=== PATIENT | male | born 1955 | race Caucasian/White ===

== ENCOUNTER 2016-12-10 10:48 | Emergency (ER) | payer SELFPAY ==
[~2016-12-10] VITALS: Ht 165.1 cm; Wt 80.7 kg
[~2016-12-10 10:48] MED LIST: NO ROUTINE MEDS
[2016-12-10 10:56] VITALS: Ht 165.1 cm; Wt 80.7 kg
[2016-12-10] MEDS ORDERED: METR-116 PO (11:22)
--- NOTE | 2016-12-10 11:40 | NUR ---
PROVIDER DR. KENYON AT BEDSIDE FOR EXAM.
[2016-12-10] MEDS ORDERED: MethylPREDNISolone ACETATE 80mg/1ml IM ONE (12:00)
--- NOTE | 2016-12-10 12:10 | ERPDOC ---
Departure Disposition Decision Date: Dec 10, 2016 Disposition Decision Time: 12:52 Disposition: 01 DISCHARGED HOME, SELF-CARE Impression Impression Impression: Primary Impression: Prostatitis Additional Impression: Low back strain Severity: Moderate Condition: Improved Seen By: Physician only Patient Instructions: Acute Low Back Pain (ED) Problems/Meds/Labs Reviewed?: Yes Medications reviewed and manag: Yes Additional Instructions: Bactrim DS, one pill twice daily for prostatitis. Prednisone burst and taper 10 mg tablets. 3 tabs daily for 3 days, 2 tabs daily for 3 days, 1 tablet daily for 3 days. follow up with your primary care provider. Follow up care ordered?: Yes Mental Status: Alert, Oriented HPI - Back Pain General Chief Complaint: Back Pain or Injury Stated Complaint: BACK PAIN Time Seen by Provider: 11:47 HPI - Back Pain Initial Comments 61-year-old gentleman presents with low back pain. 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 He was lifting and twisting felt sudden pain in his low back 2 days ago. Pain is localized to the mid low back, does not radiate to the legs. No loss of bowel or bladder function. He does have a history of difficulty urinating which is gotten worse as his gotten older. He has been diagnosed with prostatitis before. No fevers no chills. No numbness or tingling in the legs Allergies: Coded Allergies: No Known Allergies (Unverified , 12/10/16) Past History Patient Medical History Problem List Updates: Prostatitis Surgical History Denies Surgeries Vaccines Hx Influenza Vaccination: No Social History Substance Use Type: does not use Record Review Pertinent history updated: Yes Review of Systems Musculoskeletal General: see HPI Neurological General: see HPI Physical Exam General General Nourishment: well nourished, well developed, appears stated age General Body Habitus: well groomed Vitals and Pain First Documented Vital Signs Date Time Temp Pulse Resp B/P Pulse Ox O2 Delivery O2 Flow Rate FiO2 12/10/16 10:56 97.5 72 18 145/82 97 Room Air Weight: Kilograms: 80.700 Height (feet): 5 Height (inches): 5.00 Triage Pain Scale: Normal Exams: Head: Normocephalic w/o trauma Chest/Resp: Clear all sherman, with good airflow, and symmetry bilaterally CV: Regular rate and rhythm, without murmur or gallop, Pulses 2+ all extremities, capillary refill, <2 seconds all ext., no pedal edema noted Abdomen: Bowel sounds positive, soft, non-tender, non-distended, no hepatosplenomegaly, masses or bruits noted Neurologic: Patient is alert, and oriented, cranial nerves, motor/sensory/ cerebellar, exams w/o gross deficits, to observation Psychiatric: Patient exhibits, appropriate attention, emotion and affect Musculoskeletal (brief) Comments Tender lumbar spine lower lumbar area also paraspinal bilateral. Differential Diagnoses Considering: Disc Herniation, Compression Fracture, Fracture, Lumbar Sprain, Lumbar Strain Progress Results/Orders Orders Procedure Category Date Status Time Lumbar Spine 2-3 Views RAD 12/10/16 Resulted Ua, Dip Wreflex LAB 12/10/16 Complete [employer] Director 11:47 Methylprednisolone PHA 12/10/16 Complete Acetate (Depo-Medrol) 12:00 Lab Results Laboratory Tests Test 12/10/16 12:01 Urine Collection Type Voided-not cc-midstr Urine Color Yellow Urine Turbidity Clear Urine pH 6.0 Urine Specific [place] 1.010 Urine Protein Negative Urine Glucose (UA) Negative Urine Ketones Negative Urine Blood Negative Urine Nitrite Negative Urine Bilirubin Negative Urine Urobilinogen 0.2EU/DL Urine Leukocyte Esterase Negative Urinalysis Comment Microscopic not ind. Medications Current ED Medications Methylprednisolone Acetate (Depo-Medrol) 80 mg O ONCE IM Last administered on 12/10/16t 12:00; Start 12/10/16 at 12:00; Stop 12/10/16 at 12:01; Status DC Progress Progress X-ray and labs are both normal. Patient would like to try oral medications. Prednisone should help with the low back strain. We will do a burst and taper. Also prescribed muscle relaxers if he would like. Patient has appropriate symptoms of prostatitis he has been well treated with Bactrim previously and had good response. Therefore I'm okay to treat him with Bactrim DS for 4 weeks. Prescriptions written follow up with his primary care provider. JIGNESH KENYON MD Dec 10, 2016 12:10
--- NOTE | 2016-12-10 12:15 | NUR ---
XRAY PT TO XRAY AT THIS TIME.
--- NOTE | 2016-12-10 12:22 | NUR ---
RETURN PT RETURNED FROM XRAY AT THIS TIME.
[2016-12-10 12:24] LABS: BLOOD, URINE NEGATIVE (NEGATIVE); COLOR,URINE YELLOW (YELLOW); LEUKOCYTE ESTERASE ,URINE NEGATIVE (NEGATIVE); NITRITE,URINE NEGATIVE (NEGATIVE); UROBILINOGEN,URINE 0.2 EU/DL (NORMAL)
--- NOTE | 2016-12-10 12:35 | DI ---
EXAM: LUMBAR SPINE 2-3 VIEWS HISTORY: ITS.REASON: low back pain LOCATION OF DICTATION[facility] COMPARISON: No prior studies available for comparison. FINDINGS: The lumbar vertebral bodies are of normal density and appear to be in good alignment demonstrating no evidence of compression fracture or subluxation. There is severe narrowing of the L5-S1 disc space with juxta articular spurring. There is moderate narrowing of the L2-L3 disc space with remaining disc spaces are well-maintained. There is degenerative spurring of the endplates throughout the lumbar spine. There are advanced degenerative facet joint changes at the lumbosacral junction. The pedicles and posterior elements appear intact. There is straightening of the lumbar lordosis. The psoas muscle margins are clearly visualized bilaterally. Moderate degenerative changes are noted in the SI joints. There is prominent retained fecal material in the visualized colonic loops suggesting constipation. IMPRESSION: 1. No evidence of acute compression fractures or traumatic malalignment. 2. Advanced degenerative disc narrowing at L5-S1 with associated advanced facet joint arthrosis. 3. Moderate degenerative disc changes at L2-L3. 4. Straightening of the lumbar lordosis which can indicate spasm. 5. Moderate bilateral SI joint degenerative changes. 6. Constipation. .
[2016-12-10] MEDS ORDERED: PRED10TA PO (12:57)
[2016-12-10] MEDS ORDERED: SULF1TAB42 PO (12:57)
[2016-12-10] MEDS ORDERED: KETOROLAC 60mg/2ml INJECTION IM ONE (13:00)
[2016-12-10 13:17] VITALS: BP 133/76; PULSE 62; RESP 16; TEMP 97.5; O2SAT 98
--- NOTE | 2016-12-10 13:17 | NUR ---
DISCHARGE WRITTEN INSTRUCTIONS WITH PREDNISONE AND BACTRIM RX REVIEWED AND SENT WITH PT. PT VERBALIZES UNDERSTANDING OF DI AND MEDICATIONS, DENIES QUESTIONS. PT DENIES BACK PAIN AFTER TORADOL ADM. PT AMBULATES OUT OF ER WITH STEADY GAIT AT THIS TIME.
== END 2016-12-10 13:17 | disposition home or self-care (01) ==
LOC: ED 10:48
DX: S39.012A Strain of muscle, fascia and tendon of lower back, initial encounter (principal); N41.9 Inflammatory disease of prostate, unspecified; X50.1XXA Overexertion from prolonged static or awkward postures, initial encounter; Y93.H2 Activity, gardening and landscaping; Y92.9 Unspecified place or not applicable; Y99.8 Other external cause status
CPT/HCPCS: 81003; 96372